=== PATIENT | male | born 1935 | race Hispanic/Latino ===

== ENCOUNTER 2017-09-07 11:36 | Outpatient (CLI) | payer MEDICARE ==
--- NOTE | 2017-09-07 12:14 | XRay Report ---
RIGHT WRIST, 2 VIEWS History: Right wrist pain. Findings: Mild soft tissue swelling is suspected dorsally and laterally. Bone mineralization appears normal. Minimal osteoarthritic changes are identified. No evidence for fracture, dislocation, ligamentous injury or bone lesion. Impression: Mild soft tissue swelling. Minimal osteoarthritis.
== END 2017-09-07 11:37 | disposition home or self-care (01) ==
LOC: SPVIMAG 11:36
PROVIDERS: ATTEND Internal Medicine
DX: M19.031 Primary osteoarthritis, right wrist (principal)